=== PATIENT | female | born 1990 | race Caucasian/White ===

== ENCOUNTER 2017-05-01 10:30 | Emergency (ER) | payer SELFPAY ==
[~2017-05-01] VITALS: Ht 165.1 cm; Wt 52.2 kg
--- NOTE | 2017-05-01 11:23 | RAD ---
Chest, 2 views, 05/01/2017: History: Shortness of breath, pain The heart size and pulmonary vascularity are normal. No pulmonary infiltrates are seen. There is no evidence of pleural fluid or pneumothorax. IMPRESSION: No acute cardiopulmonary abnormality is detected.
[2017-05-01] MEDS ORDERED: PROAIR HFA8.5 GM INH (11:50)
[2017-05-01] MEDS ORDERED: IBUP-1060 PO (11:50)
--- NOTE | 2017-05-01 11:51 | PHYS DOC ---
Past Medical History Past Medical History: No Pertinent History Past Surgical History: No Surgical History Alcohol Use: None Drug Use: None Adult General Chief Complaint Chief Complaint: OTHER COMPLAINTS [facility] Patient is a 26 year old female with history of smoking who presents with mild right lower rib pain that has been going on for 2 days. Patient denies any fever coughing or congestion. She states the pain is worse on deep breaths. Review of Systems Review of Systems Constitutional: Denies fever or chills [] Eyes: Denies change in visual acuity, redness, or eye pain [] HENT: Denies nasal congestion or sore throat [] Respiratory:mild right lower rib pain Cardiovascular: No additional information not addressed in HPI [] GI: Denies abdominal pain, nausea, vomiting, bloody stools or diarrhea [] : Denies dysuria or hematuria [] Musculoskeletal: Denies back pain or joint pain [] Integument: Denies rash or skin lesions [] Neurologic: Denies headache, focal weakness or sensory changes [] Endocrine: Denies polyuria or polydipsia [] Allergies Allergies Allergies Coded Allergies Type Severity Reaction Last Updated Verified No Known Drug Allergies 05/01/17 No Physical Exam Physical Exam Constitutional: Well developed, well nourished, no acute distress, non-toxic appearance. [] HENT: Normocephalic, atraumatic, bilateral external ears normal, oropharynx moist, no oral exudates, nose normal. [] Eyes: PERRLA, EOMI, conjunctiva normal, no discharge. [] Neck: Normal range of motion, no tenderness, supple, no stridor. [] Cardiovascular:Heart rate regular rhythm, no murmur [] Lungs & Thorax: Bilateral breath sounds clear to auscultation, no bruising on the chest. Tenderness on palpation of lower anterior ribs approx. ribs 7-9 mid clavicular line. Abdomen: Bowel sounds normal, soft, no tenderness, no masses, no pulsatile masses. [] Skin: Warm, dry, no erythema, no rash. [] Back: No tenderness, no CVA tenderness. [] Extremities: No tenderness, no cyanosis, no clubbing, ROM intact, no edema. [] Neurologic: Alert and oriented X 3, normal motor function, normal sensory function, no focal deficits noted. [] Psychologic: Affect normal, judgement normal, mood normal. [] Current Patient Data Vital Signs Vital Signs Date Time Temp Pulse Resp B/P (MAP) Pulse Ox O2 Delivery O2 Flow Rate FiO2 05/01/17 10:48 98.1 89 18 97 Room Air 98.1 EKG EKG [] Radiology/Procedures Radiology/Procedures [] Course & Med Decision Making Course & Med Decision Making Pertinent Labs and Imaging studies reviewed. (See chart for details) Patient is in the ED with right lower rib pain worse on deep breaths that began 2 days ago. Chest x-ray interpreted by radiologist as negative for any acute findings. She is history of smoking. She was encouraged to consider smoking cessation. This pain could've come from multiple pills with high suspicion being pleurisy. She was discharged with albuterol inhaler and ibuprofen. Encouraged to follow-up with her PCP in 1-2 weeks. Her vitals are normal. Dragon Disclaimer Dragon Disclaimer This electronic medical record was generated, in whole or in part, using a voice recognition dictation system. Departure Departure Impression: Primary Impression: Pleurisy Additional Impression: Smoking addiction Disposition: 01 HOME, SELF-CARE Condition: STABLE Referrals: NO PCP (PCP) follow up with a primary care doctor in 1 week Patient Instructions: Pleurisy, Smoking Cessation Additional Instructions: You were seen with the right lower rib pain. Your symptoms could be from pleurisy which can cause rib pain especially on deep breaths. Your chest x-ray in the emergency room is negative for any acute findings. Consider smoking cessation. Take the prescribed medicines as ordered. Come back to the emergency room at any point if symptoms worsen. Scripts Albuterol Sulfate (PROAIR HFA INHALER) 8.5 Gm Hfa.aer.ad 1 PUFF INH PRN Q6HRS Y for SHORTNESS OF BREATH, #1 INHALER 0 Refills Prov: TOM BRONSON APRN 05/01/17 Ibuprofen (IBUPROFEN) 800 Mg Tablet 800 MG PO PRN Q6HRS Y for INFLAMMATION, #30 TAB Prov: TOM BRONSON APRN 05/01/17 Problem Qualifiers TOM BRONSON APRN May 01, 2017 11:51
[2017-05-01 11:55] VITALS: BP 102/56
== END 2017-05-01 11:56 | disposition home or self-care (01) ==
LOC: ER 10:30
DX: R09.1 Pleurisy (principal); F17.200 Nicotine dependence, unspecified, uncomplicated
CPT/HCPCS: 71020; 99284-25